=== PATIENT | female | born 1995 | race Hispanic/Latino ===

== ENCOUNTER 2018-11-17 04:08 | Inpatient (IN) | payer OTHER ==
--- OUTSIDE RECORDS SUMMARY | 2018-11-17 04:11 | XMS REPORT ---
:1995 [facility] Address [address] Garcia. [address] [place] [id number] Care Team Providers Name Role Phone Unavailable Unavailable Unavailable Problems This patient has no known problems. Allergies, Adverse Reactions, Alerts This patient has no known allergies or adverse reactions. Medications This patient has no known medications.
[2018-11-17] MEDS ORDERED: MAGNES/ALUMIN/SIMET 30ML UCUP PO PRN (04:16)
[2018-11-17] MEDS ORDERED: PROMETHAZINE 25 MG/ML VIAL IM PRN (04:16)
[2018-11-17] MEDS ORDERED: Ringers Lactate 1,000 ML IV PRN (04:16)
[2018-11-17] MEDS ORDERED: MIDAZOLAM HCL 2 MG/2 ML INJ IV PRN (04:16)
[2018-11-17] MEDS ORDERED: ZOLPIDEM TARTRATE 5 MG TABLET PO PRN (04:16)
[2018-11-17] MEDS ORDERED: METHYLERGONOVINE 0.2MG/ML AMP IM PRN (04:16)
[2018-11-17] MEDS ORDERED: BUTORPHANOL 1 MG/ML INJ IV PRN (04:16)
[2018-11-17] MEDS ORDERED: CARBOPROST TROME 250 MCG/ML IM PRN ×2 (04:16→14:54)
[2018-11-17] MEDS ORDERED: DIPHENHYDRAMINE 25 MG TAB/CAP PO PRN (04:16)
[2018-11-17] MEDS ORDERED: MEPERIDINE HCL 25 MG/0.5 ML IV PRN (04:16)
[2018-11-17] MEDS ORDERED: Ringers Lactate 1,000 ML IV SCH (05:00)
[2018-11-17] MEDS ORDERED: OXYTOCIN/LR 20 UNIT/1,000 ML BAG IV SCH (05:00)
[2018-11-17 05:01] VITALS: BMI 36.1
[2018-11-17 05:06] LABS: Absolute Lymphocytes (CBC) 2.1 K/uL (0.7-4.9); Basophils % 0.5 % (0-1.3); Hematocrit 35.9 % (36.0-45.0); Lymphocytes % 23.1 % (15.3-44.8); MPV 8.2 fL (7.6-11.3)
[2018-11-17 05:09] LABS: Urine Appearance CLEAR; Urine Bilirubin NEGATIVE (NEG); Urine Blood NEGATIVE (NEG); Urine Color YELLOW; Urine Glucose NEGATIVE (NEG); Urine Protein NEGATIVE (NEG); Urine Urobilinogen 0.2 mg/dL (0.2-1.0)
[2018-11-17 05:22] LABS: Urine Microscopic Reflex ORDER UMIC
[2018-11-17 05:24] LABS: Urine Bacteria >50 /HPF (<20); Urine Culture Reflex Order REFLEXED; Urine RBC NONE SEEN /HPF (NONE SEEN)
[2018-11-17] MEDS ORDERED: ROPIVACAINE HCL 100 ML IV PRN (09:32)
[2018-11-17] MEDS ORDERED: FENTANYL CITR 100 MCG/2 ML IV ONE (09:34)
[2018-11-17] MEDS ORDERED: ROPIVACAINE HCL 0.2% 20ML AMP IV ONE (10:00)
[2018-11-17] MEDS ORDERED: MEASLES,MUMPS,RUBELLA VAC 0.5ML SQVAC ONE (14:54)
[2018-11-17] MEDS ORDERED: Tdap (Diph,Pertuss(Acell),Tet Vac) 0.5 ML SYR IMVAC ONE (14:54)
[2018-11-17] MEDS ORDERED: BISACODYL 10 MG RECTAL SUPP RECT PRN (14:54)
[2018-11-17] MEDS ORDERED: Oxycodone HCl/Acetaminophen 1 TAB TAB PO PRN (14:54)
[2018-11-17] MEDS ORDERED: ACETAMINOPHEN 500 MG TAB PO PRN (14:54)
[2018-11-17] MEDS ORDERED: DOCUSATE NA/SENNA CONC 1 TAB PO PRN (14:54)
[2018-11-17] MEDS ORDERED: ONDANSETRON 4 MG (ODT) TAB PO PRN (14:54)
[2018-11-17] MEDS ORDERED: METHYLERGONOVINE 0.2 MG TAB PO PRN (14:54)
--- NOTE | 2018-11-17 14:54 | PREOPHP ---
Date of Admission: 11/17/2018 A 23-year-old, 2, para 1, 39 weeks. Rh positive, immune to Rubella. Negative beta strep scr een. For induction, pros and cons and risks and benefits all discussed prior to admission. Patient is now 3.5 cm, 70% effaced, vertex, -1 station. Irving every 2 to 3 minutes. Rupture of membra geni, clear fluid. Labor talk given anticipated rapid labor once we get going. Patient probably will request epidural, doing well at this point. AR/MARIE Voice ID: [id number]
[2018-11-17] MEDS: IBUPROFEN 200 MG TAB PO PRN (19:11)
--- NOTE | 2018-11-17 22:45 | DN ---
Surgeon: MD Reva Chaudharycami ChengCasas, 23-year-old, 2, para 1, 39 weeks gestation came in for elective induction. Pros and cons of this thoroughly discussed prior to admission. When first examined this morning was 3.5, almost 4 cm, 70% effaced, vertex, well applied, -1 station, rupture of membranes, clear fluid. Patient went to an active labor pattern at approximately 5 cm, requested and received epidural anest hesia. This gave good effect during remainder of labor and delivery. Second stage of 15 to 20 minut es. Spontaneous vaginal delivery of an estimated 7-pound plus male . Apgars 9 and 9. No epis iotomy. No laceration. Schultze delivery of the placenta, which inspected and noted be intact and n ormal. 300 cc or less blood loss. Rh positive, immune to Rubella. Negative beta strep screen. Dafne erated all procedures well. Final Diagnoses: Term intrauterine , labor induction, vaginal delivery, epidural anesthesia . AR/MARIE Voice ID: [id number] Report ID: [id number]
[2018-11-17 23:05] LABS: RPR (Rapid Plasma Reagin) NON-REACT (NON-REACT)
[2018-11-18] MEDS: IBUPROFEN 200 MG TAB PO PRN (07:13)
[2018-11-18 13:54] VITALS: BP 116/66; TEMP 96.7
== END 2018-11-18 14:20 | disposition home or self-care (01) | DRG 807 ==
LOC: EDSTATUS 04:08 → 2ND-WC 04:09
PROVIDERS: ADMIT Specialist; ATTEND Specialist
PROC: 10E0XZZ Delivery of Products of Conception, External Approach (ICD-10-PCS; principal; 2018-11-17)
PROC: 10907ZC Drainage of Amniotic Fluid, Therapeutic from Products of Conception, Via Natural or Artificial Opening (ICD-10-PCS; 2018-11-17)
DX: O80 Encounter for full-term uncomplicated delivery (principal); Z37.0 Single live birth; Z3A.39 39 weeks gestation of pregnancy
CPT/HCPCS: 36415; 81003; 81015; 85025; 86592; 86850; 86900; 86901; 87086; 87088; J2590; J2795; J3010

== ENCOUNTER 2022-04-04 02:10 | Inpatient (IN) | payer OTHER ==
[2022-04-02 12:01] LABS: SARS-CoV-2 Antigen Rapid Res Negative (Negative)
--- OUTSIDE RECORDS SUMMARY | 2022-04-04 03:50 | XMS REPORT | Continuity of Care Document ---
:1995 Author Organization [facility] t Address [address] [place] [address] Dr. Garcia. [address] [place] [address] Care Team Providers Name Role Phone HAJA FERNANDEZ Attending Clinician Unavailable Nurse, Anna Pob Immunization Attending Clinician Unavailable Haja Fernandez DO Attending Clinician Payers Payer Name Policy Type Policy Number Effective Date Expiration Date [facility] [id number] 2018 [facility] MEDICAID 00:00:00 Problems Condition Condition Condition Status Onset Resolution Last Treating Co mments Source Name Details Category Date Date Treatment Clinician Date Maternal Maternal Disease Active Overview: Un shaheen varicella, varicella, 05-12 Formattin ity of non-immune non-immune 00:00: g of this 00 note Medical might be Branch different from the original. Address in [place]. High risk High risk Disease Active Uni vers , , 05-09 it y of antepartum [place] 00:[place] [facility] Multiparit Multiparit Disease Active 2019 U nivers y y 05-09 ity of 00:00: Medical Branch Obesity in Obesity in Disease Active 2018- U nivers - ity of 00:: Medical Branch BMI BMI Disease Active 2019- Univers 34.0-34.9, 34.0-34.9, 2- it y of adult adult 00:00: Medical Branch Needs flu Needs flu Disease Active Uni vers shot shot 2- ity of 00:00: Medical Branch Allergies, Adverse Reactions, Alerts Allergy Allergy Status Severity Reaction(s) Onset Inactive Treating Comm ents Source Name Type Date Date Clinician NO KNOWN Drug Active Univers ALLERGIE Class ity of S [facility] Social History Social Habit Start Date Stop Date Quantity Comments Source Alcohol intake 2019-02-16 2019-02-16 Current University 00:00:00 00:00:00 non-drinker of [facility] alcohol Branch (finding) Tobacco use and 2018-05-09 2018-05-09 Never used Universit y of exposure 00:00:00 00:00:00 [facility] Sex Assigned At [birth year] Universit y of 00:00:00 00:00:00 [facility] Smoking Status Start Date Stop Date Source Never smoker [facility] Medications Ordered Filled Start Stop Current Ordering Indication Dosage Frequency Signature Comments Components Source Medication Medication Date Date Medication? Clinician (SIG) Name Name [id number] 2019-0 Yes [id number] 1{tbl} Take 1 Univers carb,glu-FA 2-28 tablet by ity -dss-dha 00:00: mouth [place] (CITRANATAL 00 daily. Medica l 90 DHA, Branch ALGAL OIL,) 90 mg iron-1 mg -50 mg-300 mg combo pack Immunizations Ordered Filled Immunization Date Status Comments Sourc e Immunization Name Name SARS-COV-2 COVID-19 2021-01-13 Completed Unive rsity of MODERNA VACCINE 00:00:00 [place] Med ical Branch Influenza Virus 2018-05-09 Completed Universit y of Vaccine Quad .5 mL 00:00:00 [facility] 6+ MO Branch Procedures Procedure Date / Time Performed Performing Clinician Janellc e SARS-COV-2 COVID-19 2021-01-13 19:21:38 Doctor Unassigned, No Un iversity of [place] VACCINE,0.5ML,IM Name Medical Branch (MODERNA) Encounters Start End Encounter Admission Attending Care Care Encounter Source Date/Time Date/Time Type Type Clinicians Facility Department ID 2021-01-13 2021-01-13 Outpatient Varun FERNANDEZ [facility] [id number] Univers 14:20:00 14:20:00 HAJA pool [facility] 2021-01-13 2021-01-13 Imm/Inj Nurse, Anna Pob Immunization [facility] [id number] Univers 14:18:19 14:18:55 Visit Haja Fernandez [id number] [facility] [id number] David silveira Professio [phone] Mn dical nal [address] Results This patient has no known results.
[2022-04-04] MEDS ORDERED: Ringers Lactate 1,000 ML IV PRN (04:00)
[2022-04-04] MEDS ORDERED: PROMETHAZINE INJ 25 MG/ML AMP IM PRN (04:00)
[2022-04-04] MEDS ORDERED: BUTORPHANOL 1 MG/ML INJ IV PRN (04:00)
[2022-04-04] MEDS ORDERED: METHYLERGONOVINE 0.2MG/ML AMP IM PRN (04:00)
[2022-04-04] MEDS ORDERED: CARBOPROST TROME 250 MCG/ML IM PRN (04:00)
[2022-04-04] MEDS ORDERED: OXYTOCIN/LR 20 UNIT/1,000 ML BAG IV SCH ×2 (05:00→14:00)
[2022-04-04 05:04] VITALS: BMI 36.5
[2022-04-04] MEDS: Ringers Lactate 1,000 ML IV SCH ×3 (05:40→11:10)
[2022-04-04 05:45] LABS: Absolute Lymphocytes (CBC) 2.3 K/uL (0.7-4.9); Hematocrit 37.4 % (36.0-45.0); Lymphocytes % 28.6 % (15.3-44.8); MCV 86.3 fL (80-100); MPV 8.8 fL (7.6-11.3); RBC Red Blood Cell Count 4.34 M/uL (3.86-4.86)
[2022-04-04 06:05] LABS: Hepatitis B surface AG Interp. Nonreactive (Nonreactive)
[2022-04-04 06:19] LABS: Urine Bacteria <20 /HPF (<20); Urine Bilirubin NEGATIVE (Negative); Urine Blood Negative (Negative); Urine Clarity Clear (Clear); Urine Color Light-Yellow (Yellow); Urine Glucose NEGATIVE (Negative); Urine Mucus Slight /HPF (None Seen); Urine Protein NEGATIVE (Negative); Urine RBC None Seen /HPF (None Seen); Urine Urobilinogen Normal (Normal)
[2022-04-04] MEDS ORDERED: ROPIVACAINE HCL/PF 0.2% 10 ML VIAL EP ONE (07:24)
[2022-04-04] MEDS ORDERED: LIDOCAINE 1% MPF 30 ML VIAL SQ ONE (07:35)
[2022-04-04] MEDS ORDERED: ROPIVACAINE HCL 0.2% 20ML AMP EP ONE (07:40)
[2022-04-04] MEDS ORDERED: ROPIVACAINE HCL 100 ML EP ONE (08:00)
[2022-04-04] MEDS ORDERED: FENTANYL CITR 100 MCG/2 ML IV ONE (09:05)
--- NOTE | 2022-04-04 09:37 | PREOPHP ---
Date of Admission: 04/04/2022 History Of Present Illness: A 26-year-old, 3, para 2, at approximately 38 and 6 days, possib ly 39 to 2, history of diabetes during the , fairly well controlled. Favorable cervix and r equests mother to be induced at this point. Full discussion prior to admission. Both sides of famil y, grandparents have hypertension. Paternal aunt with stroke. Paternal grandmother with diabetes. Sister with cerebral palsy. Past Medical History: No serious medical illnesses. Past Surgical History: No surgery prior to admission. Allergies: NO ALLERGIES. Medications: vitamins. Social History: Does not smoke. Physical Examination: HEENT: Clear. Pupils equal, round, reactive to light and accommodation. Conjunctivae well perfused . No oral, lingual, or buccal lesions. Chest and Lungs: Clear. Heart: Without murmurs, thrills, heaves, or rubs. Breasts: Not examined. Abdomen: Term size. Cervix is 3 to 3.5 cm, vertex, -1 to -2 station. Assessment And Plan: Irving regularly. Baby looks good. Vital signs are stable. She is Rh po sitive, immune to Rubella. Negative strep. Once she has better labor pattern, we will check rupture of membranes if appropriate. Full labor talk given. Anticipate delivery sometime later today. AR/MARIE Voice ID: [id number]
--- NOTE | 2022-04-04 10:48 | PN ---
Patient is still very posterior. The baby is possibly even higher than it was on last exam and yet, the epidural has been established. Patient is quite comfortable she is estrella regularly, but th e baby is too high to rupture membranes at this point. We will continue to increase the Pitocin and hopefully the baby will descend into the pelvis sometime in the next couple of hours. AR/MARIE Voice ID: [id number] Report ID: [id number]
--- NOTE | 2022-04-04 12:28 | PN ---
The patient is on 18 milliunits of Pitocin, estrella every 90 seconds. Baby looks good. Her cerv ix is still extremely posterior, but she is 5 cm and with contraction. The baby came down against th e cervix well. Rupture of membranes was performed. Significant amount of fluid was obtained. Baby is in lower position now. I think we should start seeing some progress. Keep going up with Pitocin to 20 to 24 if needed. Fluid was clear. Cervix still multiparous type cervix, 50% to 60% effaced, v ertex, well applied. NBC/MODL Voice ID: [id number] Report ID: [id number]
[2022-04-04] MEDS ORDERED: BISACODYL 10 MG RECTAL SUPP PR PRN (13:48)
[2022-04-04] MEDS ORDERED: Oxycodone HCl/Acetaminophen 1 TAB TAB PO PRN ×2 (13:48)
[2022-04-04] MEDS ORDERED: DIPHENHYDRAMINE 25 MG TAB/CAP PO PRN (13:48)
[2022-04-04] MEDS ORDERED: DOCUSATE NA/SENNA CONC 1 TAB PO PRN (13:48)
[2022-04-04] MEDS ORDERED: ACETAMINOPHEN 500 MG TAB PO PRN (13:48)
--- NOTE | 2022-04-04 14:27 | OP ---
Surgeon: Jayden Mckeon MD Gracia Casas is a 26-year-old 3, para 2, gestational diabetic, 38 weeks 6 days, came in f or induction. Rh positive, immune Rubella, negative strep. 3 cm on admission, but cervix is extreme ly posterior and the vertex at about -2 station. Pitocin was started. She was having regular contra ctions. The patient received 1 mg of Stadol IV, 25 mg Phenergan IM, at 5 cm cervix was still very po sterior and baby still high. Nonetheless, nurses ordered epidural anesthesia which was established. After 2 hours or more, baby was still high and the cervix is posterior, but during contraction baby' s head came down far enough that we could rupture membranes which we did, clear fluid. Baby head sta yed well applied to the cervix. The patient went into more active labor at that point. Within the n ext hour to hour and a half, she was complete on the perineum, precipitous but controlled delivery of a 7-pound plus estimated male . Apgars 9 and 9. No episiotomy. No laceration. Enoch cruz of the placenta was inspected and noted to be intact and normal. 250 cc or less blood loss. T olerated all procedures well. Final Diagnoses: Intrauterine gestation 38 weeks 6 days, gestational diabetes, labor induction, vagi nal delivery, epidural anesthesia. Also noted to have a true knot and the cord loose. NBC/MODL Voice ID: [id number] Report ID: [id number]
[2022-04-04] MEDS: IBUPROFEN 600 MG TAB PO PRN (16:16)
[2022-04-04 21:42] LABS: RPR (Rapid Plasma Reagin) NON-REACT (NON-REACT)
[2022-04-05] MEDS: IBUPROFEN 600 MG TAB PO PRN (02:21)
[2022-04-05 09:14] VITALS: TEMP 96.9
[2022-04-05 12:17] VITALS: BP 124/77
--- NOTE | 2022-04-05 18:02 | DS ---
Date of Discharge: 04/05/2022 Dictated For: Dr. Mckeon. Covering Physician: Dr. Ankur Ortiz. Final Discharge Diagnoses: 1.Intrauterine at term, 38 weeks and 6 days of gestation, delivered. 2.Normal vaginal delivery. 3.Single live . Procedure Preformed: On 04/04/2022 is normal vaginal delivery and delivery of the placenta. Hospital Course: Gracia Casas is a G3, P2, -ehtt-set female at 38 weeks and 6 days of gestation, was admitted to the hospital for augmentation of labor. She has irregular contra ctions, advancement of the cervix. She was admitted in to the hospital, underwent artificial rupture of membranes and Pitocin usage, and she has early first trimester, care with the firm ultra sound and examination due date. Maternal condition stable. She went to the labor course and g ave to a male baby, scores of 9 and 9, and baby weight was 7 pounds. There were no compl ications with minimal amount of blood loss. The next day , her uterus was clear. She has a minimum amount of vaginal lochia, and maternal vital sign was stable. Both breast-feeding and tamara le-feeding, brief education done by me and also by the nursing staff. Examination was benign. There fore, she was discharged to home in good and stable condition. Disposition: Home. Condition: Stable. Prescription: Ibuprofen 800 mg, #20, one tab p.o. t.i.d. p.r.n. with food for pain with 1 refill. Followup: Call Dr. Mckeon's office for future followup. Diet: She may have a regular diet at home. BW/MODL Voice ID: [id number] Report ID: [id number]
== END 2022-04-05 15:00 | disposition home or self-care (01) | DRG 806 ==
LOC: 2ND-WC 03:47
PROVIDERS: ADMIT Specialist; ATTEND Specialist
PROC: 10E0XZZ Delivery of Products of Conception, External Approach (ICD-10-PCS; principal; 2022-04-05)
PROC: 10907ZC Drainage of Amniotic Fluid, Therapeutic from Products of Conception, Via Natural or Artificial Opening (ICD-10-PCS; 2022-04-05)
DX: O24.429 Gestational diabetes mellitus in childbirth, unspecified control (principal); O36.0930 Maternal care for other rhesus isoimmunization, third trimester, not applicable or unspecified; Z37.0 Single live birth; O69.2XX0 Labor and delivery complicated by other cord entanglement, with compression, not applicable or unspecified; O69.81X0 Labor and delivery complicated by cord around neck, without compression, not applicable or unspecified; Z3A.38 38 weeks gestation of pregnancy; Z20.822 Contact with and (suspected) exposure to COVID-19
CPT/HCPCS: 36415; 81001; 85025; 86592; 86850; 86900; 86901; 87340; 87811; G0433; J0595; J2001; J2210; J2550; J2590; J2795; J3010; J7120